=== PATIENT | male | born 1975 | race Caucasian/White ===

== ENCOUNTER → 2017-07-14 | Outpatient (REF) ==
[~2017-07-14] MED LIST: CITA40TA19 PO; FAMO20TA13 PO; HCT25T; LISI-597
--- NOTE | 2017-07-14 09:46 | Diagnostic Imaging Report ---
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 Heart and mediastinal silhouette are normal in appearance. The lungs are clear. There is no pneumothorax or pleural fluid. IMPRESSION: Negative chest. Dictated by: Dictated on workstation # [id number]
== END | disposition home or self-care (01) ==
LOC: OCC 09:04
PROVIDERS: ATTEND Nurse Practitioner Family
CPT/HCPCS: 71046